=== PATIENT | male | born 1995 | race Caucasian/White ===

== ENCOUNTER 2017-09-12 06:06 | Day surgery (SDC) | payer OTHER ==
[2017-09-10 13:09] VITALS: BMI 28.0
[2017-09-12] MEDS ORDERED: BUPIVACAINE HCL/EPINEPHRINE/PF 30 ML VIAL IJ ONE (07:26)
[2017-09-12] MEDS ORDERED: MIDAZOLAM HCL 2 MG/2 ML SINGLE DOSE VIAL ONE (07:45)
[2017-09-12] MEDS ORDERED: PROPOFOL 20 ML ONE ×3 (07:45)
[2017-09-12] MEDS ORDERED: SUCCINYLCHOLINE CHLORIDE 200 MG/10 ML VIAL ONE (07:45)
[2017-09-12] MEDS ORDERED: KETOROLAC TROMETHAMINE 30 MG/1 ML VIAL ONE (07:49)
[2017-09-12] MEDS ORDERED: ceFAZolin SODIUM 1 GM VIAL ONE (07:49)
[2017-09-12] MEDS ORDERED: LIDOCAINE HCL 2% JELLY (5 ML/TUBE) ONE (07:49)
[2017-09-12] MEDS ORDERED: ONDANSETRON 4 MG/2 ML VIAL ONE (07:49)
[2017-09-12] MEDS ORDERED: DEXAMETHASONE SOD PHOSPHATE 4 MG/1 ML VIAL ONE (07:49)
[2017-09-12] MEDS ORDERED: ALBUTEROL SO4 18 GM HFA INHALER IH ONE (08:35)
--- NOTE | 2017-09-12 09:16 | OP ---
Operative Note - Note: Operative Date: 09/12/17 Pre-Operative Diagnosis: Right knee articulaar cartilage defect Operation: RKA, microfracture (trochlea, LFC) Post-Operative Diagnosis: Same as Pre-op Surgeon: Hill Rivero Anesthesia: Local Operative Report Dictated: Yes
--- NOTE | 2017-09-12 09:16 | DS ---
Physical Examination Vital Signs: Vital Signs Temperature 97.6 F 09/12/17 07:06 Pulse Rate 54 L 09/12/17 07:06 Respiratory Rate 18 09/12/17 07:06 Blood Pressure 127/72 09/12/17 07:06 O2 Sat by Pulse Oximetry (%) 99 09/12/17 07:06 Discharge Summary Reason For Visit: CARTILAGE DEFECT RIGHT KNEE Condition: Good - Instructions Diet, Activity, Other Instructions: Post Operative Instructions: Knee Arthroscopy Dr Hill Rivero 1. Pain following an arthroscopy is variable. Tylenol, 1000mg 3 times a day and Advil 600 mg 3 times a day should control your pain well. 2. You should are allowed to remove the bandages and shower in 24 hours. You are not allowed to bathe or go swimming. Put band-aids on the incisions after your shower and do not put any creams or lotions over the incisions. 3. You are allowed to put all your weight on the leg and bend your knee, 4. Apply ice to the knee for 15 min every hour or so. You may continue this for as many days as you like. 5. Please call the office to schedule a visit to have your sutures removed. 6. If for any reason you believe you may have an infection or are concerned, please feel free to call me. I can be reached through our office number 24 hours a day. 7. Please call our office with any questions; we will review the surgical findings during your post operative visit. Disposition: HOME - Home Medications Comprehensive Discharge Medication List: Ambulatory Orders NK [No Known Home Medication] 09/10/17
[2017-09-12 09:27] VITALS: TEMP 97.7
[2017-09-12] MEDS ORDERED: oxyCODONE HCL 5 MG TABLET PO PRN ×2 (09:29)
[2017-09-12] MEDS ORDERED: ONDANSETRON 4 MG/2 ML VIAL IVPUSH PRN (09:29)
[2017-09-12] MEDS ORDERED: PROMETHAZINE HCL 25 MG/1 ML VIAL IVPUSH PRN (09:29)
[2017-09-12 10:33] VITALS: BP 121/65; PULSE 54
--- NOTE | 2017-09-15 17:47 | PATH ---
Surgical Pathology Report Patient Name: KAVYA ALEXANDER Med. Rec. #: [id number] /Age/Gender: 1995 (Age: 21) / M Account: [id number] Location: [facility] Taken: 09/12/2017 Received: 09/12/2017 Reported: 09/15/2017 Physicians: Hill Rivero M.D. Specimen(s) Received RIGHT KNEE SHAVINGS Clinical History Right knee cartilage defect Final Diagnosis KNEE SHAVINGS, RIGHT, ARTHROSCOPY: FRAGMENTS OF CARTILAGE, FIBROCONNECTIVE TISSUE, AND SYNOVIUM. Electronically Signed Danna Spain M.D. Gross Description Received in formalin labeled "right knee shavings," is a 2.0 x 1.5 x 0.3 cm aggregate of martino-yellow soft tissue fragments. The formalin is filtered and the specimen is entirely submitted in one cassette. /09/12/2017 saudi09/12/2017
== END 2017-09-12 10:30 | disposition home or self-care (01) ==
LOC: FASU 06:06
PROVIDERS: ATTEND Orthopaedic Surgery
PROC: 0SBC4ZZ Excision of Right Knee Joint, Percutaneous Endoscopic Approach (ICD-10-PCS; principal; 2017-09-12 08:28)
DX: M94.8X6 Other specified disorders of cartilage, lower leg (principal); M24.10 Other articular cartilage disorders, unspecified site
CPT/HCPCS: 88304-TC; 94760